=== PATIENT | male | born 2000 | race Caucasian/White ===

== ENCOUNTER 2020-06-17 09:44 | Inpatient (IN) | payer BC ==
[~2020-06-17] VITALS: Ht 195.6 cm; Wt 86.2 kg
--- NOTE | 2020-06-17 09:53 | NUR ---
Glenny ramos in EDM - 06/17/20 at 1410 by KIRSTEN PT REC'D TO ER VIA EMS PT LOW BP DEMENTIA MORE CONFUSED THAN NORMALAWAITING EVALUATION BY ER PROVIDER.
[2020-06-17] MEDS ORDERED: PIPERACILLIN /TAZOBACTAM 3.375 G in IV D5W 50 ML IV ONE (10:00)
[2020-06-17] MEDS ORDERED: VANCOMYCIN HCL 1 GM in IV D5W 260 ML IV ONE (10:00)
[2020-06-17] MEDS ORDERED: MORPHINE SULFATE INJ 4 MG/ML DISP.SYRIN ONE (10:08)
--- NOTE | 2020-06-17 10:11 | NUR ---
PT IV SATARTED 20G RT AC GIVEN MEDX PER MD ORDER
[2020-06-17] MEDS ORDERED: MORPHINE SULFATE INJ 2 MG/ML DISP.SYRIN IV ONE (10:30)
--- NOTE | 2020-06-17 11:30 | NUR ---
PT STATED HAND VERY PAINFUL WANTS TO BE ADMITTED VSS CONT TO MONITOR
--- NOTE | 2020-06-17 11:45 | NUR ---
ALMAS FROM [facility]
--- NOTE | 2020-06-17 11:50 | NUR ---
CALLED [facility], PAGED LORRAINE GARCÍA
[2020-06-17 12:28] LABS: BASOPHILS # (AUTO) 0.1 /CMM (0.0-0.2); BASOPHILS % (AUTO) 0.5 % (0.0-2.0); HEMATOCRIT 45 % (39-51); HEMOGLOBIN 14.9 g/dL (13.5-17.5); LYMPHOCYTES # (AUTO) 2.6 /CMM (0.8-4.8); LYMPHOCYTES % (AUTO) 13.9 % (20.0-44.0); MEAN CORPUSCULAR HGB CONC 34 g/dl (31.0-36.0); MEAN CORPUSCULAR VOLUME 88 fL (80-96); MONOCYTES # (AUTO) 1.2 /CMM (0.1-1.30); MONOCYTES % (AUTO) 6.3 % (2.0-12.0); NEUTROPHILS # (AUTO) 14.8 /CMM (1.8-8.9); NEUTROPHILS % (AUTO) 78.3 % (43.0-81.0); PLATELET COUNT (AUTO) 370 /CMM (150-450); RED BLOOD CELL COUNT(AUTO) 5.06 MIL/uL (4.5-6.0)
--- NOTE | 2020-06-17 12:31 | NUR ---
PT EATING LUNCH VSS
[2020-06-17 12:35] LABS: CALCIUM, SERUM 9.2 mg/dL (8.5-10.1); POTASSIUM 3.9 mmol/L (3.5-5.1)
[2020-06-17] MEDS ORDERED: HYDROMORPHONE 1 MG/1 ML DISP.SYRIN ONE (13:56)
[2020-06-17] MEDS ORDERED: HYDROMORPHONE 1 MG/1 ML DISP.SYRIN IV ONE (14:00)
--- NOTE | 2020-06-17 14:01 | NUR ---
PT C/O PAIN AGAIN DILAUDID 1 MG IVP NOW PER MD ORDER
--- NOTE | 2020-06-17 14:03 | NUR ---
Note richard in ED - 06/17/20 at 1410 by KIRSTEN NURSE LUÍS GAVE TRANSPOTION FOR PT IS [place] .Patient discharged to home in stable condition. Written and verbal after care instructions given. Patient verbalizes understanding of instruction.
--- NOTE | 2020-06-17 14:45 | NUR ---
PT WATCHING TV VSS
--- NOTE | 2020-06-17 16:30 | NUR ---
GOT BED 320-2
--- NOTE | 2020-06-17 16:34 | NUR ---
CALLED REPORT TO FLOOR STABLE FOR TRANFSER
[2020-06-17 17:00] VITALS: BP 108/66
[2020-06-17] MEDS: HYDROMORPHONE 1 MG/1 ML DISP.SYRIN IV PRN ×2 (18:11→21:29)
--- NOTE | 2020-06-17 18:30 | NUR ---
MS SLEEVER NOTES RECEIVED PT VIA STRETCHER FROM ER DEPT AND ARRIVED AT 1655 IN THE ROOM. PT A/OX4, AWAKE AND AMBULATORY. PT TOLERATING RA, WITH NO ACUTE RESPIRATORY DISTRESS NOTED. PT STATED PAIN ON RIGHT HAND AND NOTIFIED ADMITTING/TS FOR ADMISSION ORDERS AND PAIN PRN MEDS, PRN MEDS GIVEN ORDERED WELL. PT ABLE TO PROVIDE HISTORY IN REGARDS TO ADMISSION. PIV TO RAC G20, FLUSHED WITH NS, INTACT AND OPERATIONAL. PT REFUSES FLU VACCINE. SKIN ASSESSED, PICTURES TAKEN AND FILED IN THE CHART. PT KEPT COMFORTABLE IN BED. CALL LIGHT KEPT WITHIN REACH. WILL ENDORSE TO INCOMING NIGHT NURSE FOR TIERRA.
--- NOTE | 2020-06-17 18:59 | NUR ---
MS RN NOTES PER PT IF ALMAS/CREDIT ASSOCIATE AT [facility] CALLS FOR INFORMATION, DO NOT PROVIDE AND JUST DIRECT IT TO HIM INSTEAD. WILL ENDORSE TO INCOMING NIGHT NURSE WELL.
[2020-06-17] MEDS ORDERED: ZOLPIDEM TARTRATE 5 MG TABLET PO PRN (19:00)
[2020-06-17] MEDS ORDERED: Z GUARD REMEDY 2 OZ OINT TP PRN (19:00)
[2020-06-17] MEDS ORDERED: HYDROMORPHONE INJ 2 MG/ML DISP.SYRIN IV PRN (19:00)
[2020-06-17] MEDS ORDERED: ONDANSETRON HCL/PF 4 MG/2 ML VIAL IVP PRN (19:00)
[2020-06-17] MEDS ORDERED: ACETAMINOPHEN 325 MG TABLET PO PRN (19:00)
--- NOTE | 2020-06-17 19:45 | NUR ---
MS-RN OPENING NOTE RECEIVED PT IN ROOM RESTING, A/O X4, GIVEN PT ICE PACK FOR RIGHT HAND, NO S/S OF DISTRESS NOTED, NO SOB.CALL LIGHT WITHIN REACH, BED IN LOWEST POSITION, SIDE RAIL X2 IN UPRIGHT POSITION, BED ALARM ACTIVE. WILL CONTINUE TO MONITOR AND ENSURE SAFETY.
[2020-06-17 20:00] VITALS: BP 121/61
[2020-06-17] MEDS ORDERED: VANCOMYCIN 1 GM VIAL ONE ×2 (21:31→21:33)
--- NOTE | 2020-06-17 21:33 | NUR ---
MS RN NOTES: PAIN PT. C/O OF 8/10 PAIN IN R HAND. ADMINISTERED DILAUDID 1 MG PRN ORDERED. WILL CONTINUE TO MONITOR FOR SAFETY AND BEHAVIOR.
[2020-06-17] MEDS: VANCOMYCIN 1.25 GM in IV D5W 250 ML IV SCH (21:44)
--- NOTE | 2020-06-18 01:20 | NUR ---
MS RN NOTE: PT. REMOVED RAC IV. INSERTED NEW IV IN LH 22 G. WILL CONTINUE TO MONITOR.
[2020-06-18] MEDS: HYDROMORPHONE 1 MG/1 ML DISP.SYRIN IV PRN ×7 (01:29→21:10)
--- NOTE | 2020-06-18 01:47 | NUR ---
MS RN NOTES: PAIN PT. C/O OF 8/10 PAIN IN R HAND. ADMINISTERED DILAUDID 1 MG PRN ORDERED. WILL CONTINUE TO MONITOR FOR SAFETY AND BEHAVIOR.
[2020-06-18] MEDS ORDERED: VANCOMYCIN 1 GM VIAL ONE (03:14)
[2020-06-18] MEDS: VANCOMYCIN 1.25 GM in IV D5W 250 ML IV SCH ×3 (04:38→20:30)
--- NOTE | 2020-06-18 04:55 | NUR ---
MS RN NOTES: PAIN PT. C/O OF 8/10 PAIN IN R HAND. ADMINISTERED DILAUDID 1 MG PRN ORDERED. WILL CONTINUE TO MONITOR FOR SAFETY AND BEHAVIOR.
--- NOTE | 2020-06-18 06:52 | NUR ---
MS/RN End note Patient remains in stable condition, last pain medication administered at 0451.Patient now resting comfortably.
--- NOTE | 2020-06-18 07:43 | NUR ---
MS/RN OPENING NOTES RECEIVED PATIENT ON BED, AWAKE, ALERT AND ORIENTED X4. PATIENT COMPLAINED OF PAIN RATED 8/10. PATIENT IN NO APPARENT RESPIRATORY DISTRESS NOTED. WILL CONTINUE TO MONITOR.
[2020-06-18 08:00] VITALS: BP 106/55
[2020-06-18 08:17] LABS: BASOPHILS # (AUTO) 0.1 /CMM (0.0-0.2); BASOPHILS % (AUTO) 0.3 % (0.0-2.0); EOSINOPHILS % (AUTO) 2.6 % (0.0-6.0); HEMATOCRIT 43 % (39-51); HEMOGLOBIN 14.3 g/dL (13.5-17.5); LYMPHOCYTES # (AUTO) 2.2 /CMM (0.8-4.8); LYMPHOCYTES % (AUTO) 15.2 % (20.0-44.0); MEAN CORPUSCULAR HGB CONC 34 g/dl (31.0-36.0); MEAN CORPUSCULAR VOLUME 88 fL (80-96); MONOCYTES # (AUTO) 0.9 /CMM (0.1-1.30); MONOCYTES % (AUTO) 6.2 % (2.0-12.0); NEUTROPHILS % (AUTO) 75.7 % (43.0-81.0); PLATELET COUNT (AUTO) 428 /CMM (150-450); RED BLOOD CELL COUNT(AUTO) 4.87 MIL/uL (4.5-6.0); WHITE BLOOD COUNT (AUTO) 14.5 K/uL (4.3-11.0)
[2020-06-18 09:05] LABS: CALCIUM, SERUM 9.3 mg/dL (8.5-10.1); CREATININE 0.7 mg/dL (0.6-1.3); MAGNESIUM 2.4 mg/dL (1.8-2.4); PHOSPHORUS 4.1 mg/dL (2.5-4.9); POTASSIUM 4.3 mmol/L (3.5-5.1)
--- NOTE | 2020-06-18 12:57 | NUR ---
MS/RN NOTES PATENT COMPLAINED OF PAIN RATED 8/10 DILAUDID 1 MG IV WAS GIVEN. WILL CONTINUE TO MONITOR.
--- NOTE | 2020-06-18 15:48 | NUR ---
MS/RN NOTES PATIENT IS ALERT AND ORIENTED X4. PATIENT RESTING ON BED. NO RESPIRATORY DISTRESS NOTED. DENIES PAIN AT THIS TIME. ENDORSED TO MANUEL FOR TIERRA.
[2020-06-18 16:00] VITALS: BP 110/69
--- NOTE | 2020-06-18 16:30 | NUR ---
MS/RN Change of nurse Patient received from outgoing nurse.
--- NOTE | 2020-06-18 16:58 | NUR ---
MS/RN Pain Patient complaining of pain to right hand, dilaudid 1mg administered as ordered. Will monitor effectiveness.
--- NOTE | 2020-06-18 18:05 | NUR ---
MS/RN End note Patient remains in stable condition, all medications administered as ordered. Will endorse to night order selector.
--- NOTE | 2020-06-18 18:35 | NUR ---
MS/RN MRSA RECEIVED CALL FROM LAB. PATIENT POSITIVE TO MRSA NARES. DR. GARCÍA NOTIFIED, BACTROBAN ORDERED.
--- NOTE | 2020-06-18 19:30 | NUR ---
ms rn opening note received patient in bed. a/ox4. tolerating room air. respirations are even and unlabored. no s/s sob noted. no c/o pain at this time. in no apparent distress. iv access in left hand #22 patent and saline locked. bed is low and locked, hob flat, side rails up x2. call light within reach. will continue to monitor.
[2020-06-18 20:00] VITALS: BP 119/64
[2020-06-18] MEDS: MUPIROCIN OINT 2% 22 GM TUBE NS SCH (20:29)
--- NOTE | 2020-06-18 21:10 | NUR ---
ms rn note administered prn Dilaudid 1mg for pain 8/10 in right hand. will continue to monitor.
[2020-06-19] MEDS: HYDROMORPHONE 1 MG/1 ML DISP.SYRIN IV PRN ×2 (01:49→06:42)
--- NOTE | 2020-06-19 01:49 | NUR ---
MS RN NOTE ADMINISTERED DILAUDID 1MG FOR PAIN 8/10 IN RIGHT HAND/WRIST, WILL CONTINUE TO MONITOR.
[2020-06-19] MEDS: VANCOMYCIN 1.25 GM in IV D5W 250 ML IV SCH (05:38)
[2020-06-19 07:15] LABS: CALCIUM, SERUM 9.5 mg/dL (8.5-10.1); CREATININE 0.8 mg/dL (0.6-1.3); POTASSIUM 4.3 mmol/L (3.5-5.1)
--- NOTE | 2020-06-19 07:20 | NUR ---
MS RN OPENING NOTES RECEIVED PATIENT IN BED, ALERT TO SELF. PATIENT OM ROOM AIR; BREATHING IS EVEN AND UNLABORED; NO SOB NOTED AT THIS TIME. RFA IV ACCESS PRESENT AND INTACT INFUSING NS @ 75 MLS/HR. SAFETY PRECAUTIONS IN PLACE; BED IN LOW POSITION AND LOCKED, RAILS UP X2, CALL LIGHT WITHIN REACH. WILL CONTINUE TO MONITOR PATIENT.
--- NOTE | 2020-06-19 07:29 | NUR ---
ms rn closing note patient resting in bed. a/ox4. remains tolerating room air. no resp distress. managed pain with Dilaudid 1mg throughout shift. no distress. iv access in RFA#22 patent and saline locked. bed remains low and locked, hob flat, side rails up x2. call light within reach. will endorse to next shift.
[2020-06-19 08:00] VITALS: BP 122/61
[2020-06-19] MEDS: MUPIROCIN OINT 2% 22 GM TUBE NS SCH (08:08)
[2020-06-19 08:35] LABS: BASOPHILS # (AUTO) 0.1 /CMM (0.0-0.2); BASOPHILS % (AUTO) 0.7 % (0.0-2.0); EOSINOPHILS % (AUTO) 3.6 % (0.0-6.0); HEMATOCRIT 43 % (39-51); HEMOGLOBIN 14.5 g/dL (13.5-17.5); LYMPHOCYTES # (AUTO) 2.2 /CMM (0.8-4.8); MEAN CORPUSCULAR HGB CONC 34 g/dl (31.0-36.0); MEAN CORPUSCULAR VOLUME 88 fL (80-96); MONOCYTES # (AUTO) 0.7 /CMM (0.1-1.30); MONOCYTES % (AUTO) 6.4 % (2.0-12.0); NEUTROPHILS # (AUTO) 7.6 /CMM (1.8-8.9); NEUTROPHILS % (AUTO) 69.3 % (43.0-81.0); PLATELET COUNT (AUTO) 437 /CMM (150-450)
[2020-06-19 09:13] LABS: MAGNESIUM 2.7 mg/dL (1.8-2.4); PHOSPHORUS 4.3 mg/dL (2.5-4.9)
[2020-06-19] MEDS ORDERED: CLIN300C11 PO (10:13)
[2020-06-19] MEDS ORDERED: SULF1TAB48 PO (10:14)
--- NOTE | 2020-06-19 11:16 | NUR ---
MS DRAWING IN MACHINE TENDER HELPER NOTES PATIENT DISCHARGED HOME IN MEDICALLY STABLE CONDITION. PATIENT AMBULATORY, ON ROOM AIR, A/O X4. PATIENT WANTED TO GO [place]. ALL DOCUMENTS READY AND SIGNED BY PATIENT. PRESCRIPTION GIVEN BY MD. ALL DISCHARGE PAPERWORK EXPLAINED. PATIENT VERBALIZED UNDERSTANDING. VALUABLES ACCOUNTED FOR AND ALSO SIGNED BY THE PATIENT. PATIENT IV LINE REMOVED WITH THE WRISTBAND. PATIENT LEFT THE FLOOR ACCOMPANIED BY STAFF AT 11;15
== END 2020-06-19 11:15 | disposition home or self-care (01) | DRG 603 ==
LOC: ER 09:46 → MED 16:41
PROVIDERS: ADMIT Nurse Practitioner Acute Care; ATTEND Nurse Practitioner Acute Care
DX: L03.113 Cellulitis of right upper limb (principal); F11.20 Opioid dependence, uncomplicated; D72.829 Elevated white blood cell count, unspecified; F17.210 Nicotine dependence, cigarettes, uncomplicated; B95.62 Methicillin resistant Staphylococcus aureus infection as the cause of diseases classified elsewhere
CPT/HCPCS: 36415; 73110; 80048-TC; 80061-TC; 80202-TC; 83605-TC; 83735-TC; 84100-TC; 85025-TC; 85652-TC; 86140-TC; 87081-TC; C9803-CS; G0378; J1170; J2270; J2543; J3370; J7040; J7060